=== PATIENT | male | born 1970 | race African-American/Black ===

== ENCOUNTER 2020-09-24 16:10 | Emergency (ER) | payer SELFPAY ==
[~2020-09-24] VITALS: Ht 177.8 cm; Wt 75.0 kg
[2020-09-24] MEDS ORDERED: SODIUM CHLORIDE 0.9% 1,000 ML IV ONE (16:30)
[2020-09-24 17:37] VITALS: BP 138/90
== END 2020-09-24 17:52 | disposition home or self-care (01) ==
LOC: ER 16:10
DX: F10.129 Alcohol abuse with intoxication, unspecified (principal); Y90.0 Blood alcohol level of less than 20 mg/100 ml
CPT/HCPCS: 99283; J7030